=== PATIENT | male | born 1985 | race Caucasian/White ===

== ENCOUNTER 2020-10-28 08:49 | Emergency (ER) | payer SELFPAY ==
[~2020-10-28] VITALS: Ht 185.4 cm; Wt 83.9 kg
[2020-10-28 08:50] VITALS: BP_SYST 127
[2020-10-28 09:40] VITALS: BP_SYST 121
== END 2020-10-28 09:40 ==
LOC: SED 08:49
DX: S73.101A Unspecified sprain of right hip, initial encounter (principal); E11.9 Type 2 diabetes mellitus without complications; X50.1XXA Overexertion from prolonged static or awkward postures, initial encounter; Y93.89 Activity, other specified; Y92.89 Other specified places as the place of occurrence of the external cause; Y99.8 Other external cause status
CPT/HCPCS: 72170-TC; 99283